=== PATIENT | female | born 2000 | race Hispanic/Latino ===

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

== ENCOUNTER 2022-10-17 12:30 | Outpatient (CLI) | payer OTHER | END 2022-10-17 21:00 | disposition home or self-care (01) | LOC: MRI 12:30 | PROVIDERS: ATTEND Orthopaedic Surgery | DX: M43.06 Spondylolysis, lumbar region (principal); M54.59 Other low back pain ==